=== PATIENT | female | born 1995 | race Caucasian/White ===

== ENCOUNTER 2019-08-08 18:35 | Emergency (ER) | payer MEDICAID ==
[~2019-08-08] VITALS: Ht 154.9 cm; Wt 55.8 kg
[2019-08-08 18:41] VITALS: Ht 154.9 cm; Wt 55.8 kg
[2019-08-08 19:17] LABS: BASOPHIL % 0.4 % (0-2); PLATELET COUNT 317 x10^3mcL (130-400)
[2019-08-08 19:25] VITALS: BP 136/85
== END 2019-08-08 19:25 | disposition home or self-care (01) ==
LOC: ED 18:35
PROVIDERS: Emergency Medicine
DX: O20.0 Threatened abortion (principal); Z3A.01 Less than 8 weeks gestation of pregnancy
CPT/HCPCS: 36415

== ENCOUNTER 2019-08-10 11:32 | Emergency (ER) | payer MEDICAID ==
[~2019-08-10] VITALS: Ht 154.9 cm; Wt 55.8 kg
[2019-08-10 11:36] VITALS: BP 128/84
== END 2019-08-10 13:59 | disposition home or self-care (01) ==
LOC: ED 11:32
DX: O20.0 Threatened abortion (principal); Z3A.01 Less than 8 weeks gestation of pregnancy
CPT/HCPCS: 36415